=== PATIENT | female | born 1985 | race Hispanic/Latino ===

== ENCOUNTER 2017-06-16 03:07 | Emergency (ER) | payer MEDICAID | END 2017-06-16 04:50 | disposition home or self-care (01) | LOC: EDH 03:07 | DX: S63.592A Other specified sprain of left wrist, initial encounter (principal); Z72.0 Tobacco use; Z79.899 Other long term (current) drug therapy; X58.XXXA Exposure to other specified factors, initial encounter; Y93.89 Activity, other specified; Y92.098 Other place in other non-institutional residence as the place of occurrence of the external cause; Y99.8 Other external cause status | CPT/HCPCS: 73130 ==

== ENCOUNTER 2020-08-28 01:59 | Emergency (ER) | payer MEDICAID | END 2020-08-28 02:37 | disposition left against medical advice (07) | LOC: EDH 01:59 | DX: Z02.83 Encounter for blood-alcohol and blood-drug test (principal) | CPT/HCPCS: 36415 ==

== ENCOUNTER 2020-08-28 18:11 | Emergency (ER) | payer MEDICAID ==
[2020-08-28 18:49] LABS: BASOPHILS % (AUTO) 0.6 % (0.0-5.0); EOSINOPHILS % (AUTO) 3.5 % (0.0-8.0); HEMATOCRIT 39.9 % (36-48); LYMPHOCYTES % (AUTO) 23.7 % (21.0-51.0); MEAN CORPUSCULAR HEMOGLOBIN 28.7 pg (27.0-33.0); MEAN CORPUSCULAR HGB CONC 32.3 g/dL (32.0-36.0); MEAN CORPUSCULAR VOLUME 88.9 fL (79-99); MONOCYTES % (AUTO) 7.2 % (3.0-13.0); NEUTROPHILS % (AUTO) 64.6 % (40.0-77.0); PLATELET COUNT (AUTO) 255 K/uL (130-400); RED BLOOD CELL COUNT(AUTO) 4.49 MIL/uL (4.00-5.50); RED CELL DISTRIBUTION WIDTH 13.7 % (11.0-15.5); WHITE BLOOD COUNT (AUTO) 5.1 K/uL (4.8-10.8)
[2020-08-28 18:59] LABS: CREATININE 0.7 mg/dL (0.5-1.5); POTASSIUM 3.9 mmol/L (3.5-5.1)
[2020-08-28 19:04] LABS: ALBUMIN 3.8 g/dL (3.5-5.0); BILIRUBIN,TOTAL 0.3 mg/dL (0.2-1.0); TOTAL PROTEIN, SERUM 8.5 g/dL (6.0-8.3)
[2020-08-28 20:00] LABS: APPEARANCE,URINE Clear (CLEAR); BILIRUBIN,URINE Negative (NEGATIVE); COLOR,URINE Yellow (YELLOW); GLUCOSE, URINE (UA) Negative (NEGATIVE); KETONES,URINE Negative (NEGATIVE); LEUKOCYTE ESTERASE ,URINE Moderate (NEGATIVE); NITRATE,URINE Negative (NEGATIVE); OCCULT BLOOD,URINE Nonhemolyzed Trace (NEGATIVE); PROTEIN,URINE Negative (NEGATIVE)
[2020-08-28 20:01] LABS: HCG,QUAL RESULT NEGATIVE (NEGATIVE)
[2020-08-28 20:16] LABS: BACTERIA,URINE Few /HPF (None Seen); MUCUS,URINE Few LPF (None Seen); SQUAMOUS EPITHELIAL CELL,UR Few /HPF (0-2)
== END 2020-08-28 20:28 | disposition home or self-care (01) ==
LOC: EDH 18:11 → EEVIPCON 18:11 → EDH 20:28
DX: R07.89 Other chest pain (principal); F41.9 Anxiety disorder, unspecified; F31.9 Bipolar disorder, unspecified; Z72.0 Tobacco use; Z87.442 Personal history of urinary calculi
CPT/HCPCS: 36415; 71045; 80053; 81001; 81025; 84484; 84702; 85025; 87077; 87088; 87186; 93005

== ENCOUNTER 2020-10-14 06:57 | Emergency (ER) | payer MEDICAID | END 2020-10-14 07:11 | disposition left against medical advice (07) | LOC: EDH 06:57 | DX: M25.572 Pain in left ankle and joints of left foot (principal); F41.9 Anxiety disorder, unspecified; F32.9 Major depressive disorder, single episode, unspecified; Z72.0 Tobacco use; Z53.21 Procedure and treatment not carried out due to patient leaving prior to being seen by health care provider ==

== ENCOUNTER 2021-12-03 20:32 | Emergency (ER) | payer MEDICAID ==
[~2021-12-03] VITALS: Ht 154.9 cm; Wt 67.1 kg
[2021-12-03] MEDS ORDERED: IBUPROFEN 600 MG TABLET PO ONE (21:00)
[2021-12-03] MEDS ORDERED: IBUP-2070 PO (22:24)
[2021-12-03 22:30] VITALS: BP 128/72
== END 2021-12-03 22:31 | disposition home or self-care (01) ==
LOC: EDH 20:32
DX: M25.531 Pain in right wrist (principal); M79.632 Pain in left forearm; M25.532 Pain in left wrist; M79.89 Other specified soft tissue disorders; J45.909 Unspecified asthma, uncomplicated; W01.0XXA Fall on same level from slipping, tripping and stumbling without subsequent striking against object, initial encounter; Y93.89 Activity, other specified; Y92.89 Other specified places as the place of occurrence of the external cause; Y99.8 Other external cause status
CPT/HCPCS: 29125; 73090; 73110

== ENCOUNTER 2022-11-22 21:02 | Emergency (ER) | payer MEDICAID ==
[~2022-11-22] VITALS: Ht 154.9 cm; Wt 53.1 kg
[~2022-11-22 21:02] MED LIST: IBUP-2070 PO
[2022-11-22 22:01] LABS: BASOPHILS % (AUTO) 0.6 % (0.0-5.0); EOSINOPHILS % (AUTO) 14.1 % (0.0-8.0); HEMATOCRIT 36.9 % (36-48); LYMPHOCYTES % (AUTO) 23.5 % (21.0-51.0); MEAN CORPUSCULAR HEMOGLOBIN 28.6 pg (27.0-33.0); MEAN CORPUSCULAR VOLUME 89.6 fL (79-99); MONOCYTES % (AUTO) 6.9 % (3.0-13.0); NEUTROPHILS % (AUTO) 54.7 % (40.0-77.0); PLATELET COUNT (AUTO) 222 K/uL (130-400); RED BLOOD CELL COUNT(AUTO) 4.12 MIL/uL (4.00-5.50); RED CELL DISTRIBUTION WIDTH 13.4 % (11.0-15.5); WHITE BLOOD COUNT (AUTO) 6.2 K/uL (4.8-10.8)
[2022-11-22 22:24] LABS: ALBUMIN 3.7 g/dL (3.5-5.0); CREATININE 0.8 mg/dL (0.5-1.5); POTASSIUM 3.6 mmol/L (3.5-5.1); TOTAL PROTEIN, SERUM 8.4 g/dL (6.0-8.3)
[2022-11-23 01:46] VITALS: BP 131/78
== END 2022-11-23 01:48 | disposition home or self-care (01) ==
LOC: EDH 21:02
DX: N93.9 Abnormal uterine and vaginal bleeding, unspecified (principal); J45.909 Unspecified asthma, uncomplicated
CPT/HCPCS: 36415; 80053; 81025; 84702; 85025